=== PATIENT | female | born 1975 | race African-American/Black ===

== ENCOUNTER 2019-02-24 18:20 | Emergency (ER) | payer OTHER ==
[~2019-02-24] VITALS: Ht 160 cm; Wt 62.1 kg
[~2019-02-24 18:20] MED LIST: ACYCLOVIR 400400 MG PO; FLEET ENEMA118 ML RC; MIRALAX255 GM PO; NOHOMEMEDICATIONS; NORCO 5-325 TA1 EACH PO; ULTRAM 50MG TAB50 MG PO
[2019-02-24 18:21] VITALS: BP 137/80
[2019-02-24] MEDS ORDERED: LEVOXYL50 MCG PO (18:50)
[2019-02-24] MEDS ORDERED: TIZANIDINE HCL4 MG PO (18:54)
[2019-02-24] MEDS ORDERED: IBUPROFEN 600600 M1 PO (18:54)
== END 2019-02-24 19:26 | disposition home or self-care (01) ==
LOC: ER 18:20
DX: M25.552 Pain in left hip (principal); M25.512 Pain in left shoulder; F17.210 Nicotine dependence, cigarettes, uncomplicated; V89.2XXA Person injured in unspecified motor-vehicle accident, traffic, initial encounter; Y92.89 Other specified places as the place of occurrence of the external cause; Y93.89 Activity, other specified; Y99.8 Other external cause status